=== PATIENT | male | born 1970 | race Caucasian/White ===

== ENCOUNTER 2017-03-23 13:39 | Emergency (ER) | payer SELFPAY ==
--- NOTE | 2017-03-23 15:16 | RAD ---
HISTORY: Left ankle pain, injury COMPARISONS: None VIEWS: 3, Frontal, lateral, and oblique views of the left ankle FINDINGS: BONE DENSITY: Normal. BONES: There is no displaced fracture. JOINTS: There is no arthropathy. ALIGNMENT: There is no dislocation. SOFT TISSUES: Unremarkable. OTHER FINDINGS: None. IMPRESSION: NO ACUTE OSSEOUS INJURY. IF SYMPTOMS PERSIST, RECOMMEND REPEAT IMAGING.
--- NOTE | 2017-03-23 15:28 | ED ---
Lower Extremity - HPI Summary HPI Summary: 46 male presents to ED with complaints of left ankle/foot pain after an injury that occurred 3 days ago. Patient states he fell off a ladder and landed on his feet. States he fell about 4 feet. Denies any other injuries or complaints. Did not hit his head. Denies known twisting of his ankle or foot. No knee or hip pain. Admits to swelling and bruising of left ankle/medial foot. Has been unable to bear weight. Has been taking ibuprofen with relief. Also has been using crutches. No other complaints. No other medications. No PMHx. - History of Current Complaint Chief Complaint: EDExtremityLower Stated Complaint: LT ANKLE INJURY Time Seen by Provider: 03/23/17 14:09 Hx Obtained From: Patient Mechanism Of Injury: Fall From Height Of: - 4 feet Onset of Pain: Immediate, Post Accident Onset/Duration: Still Present Severity Initially: Moderate Severity Currently: Mild Pain Intensity: 2 Pain Scale Used: 0-10 Numeric Timing: Constant Location: Is Discrete @ - left ankle and medial foot Character Of Pain: Sharp, Aching Associated Signs And Symptoms: Positive: Swelling, Bruising Aggravating Factor(s): Standing, Movement, Weight Bearing Alleviating Factor(s): Rest Able to Bear Weight: No - due to pain and injury Feet (Multiple View): 1 - swelling, bruising and pain - Allergies/Home Medications Allergies/Adverse Reactions: Allergies Allergy/AdvReac Type Severity Reaction Status Date / Time No Known Allergies Allergy Verified 03/23/17 13:42 PMH/Surg Hx/FS Hx/Imm Hx Endocrine/Hematology History: Denies: Hx Diabetes Cardiovascular History: Denies: Hx Hypertension Respiratory History: Denies: Hx Asthma - Surgical History Surgery Procedure, Year, and Place: n/a - Immunization History Immunizations Up to Date: Yes Infectious Disease History: No Infectious Disease History: Denies: Traveled Outside the [place] in Last 30 Days - Family History Known Family History: Positive: None - Social History Alcohol Use: Daily Alcohol Amount: 12 beers/day Substance Use Type: Reports: Marijuana Substance Use Comment - Amount & Last Used: rare Smoking Status (MU): Heavy Every Day Tobacco Smoker Review of Systems Constitutional: Negative Cardiovascular: Negative Respiratory: Negative Positive: Arthralgia, Myalgia, Decreased ROM, Edema - left ankle/foot Positive: Bruising - left ankle Neurological: Negative All Other Systems Reviewed And Are Negative: Yes Physical Exam Triage Information Reviewed: Yes Vital Signs On Initial Exam: Initial Vitals Temp Pulse Resp BP Pulse Ox 96.6 F 96 20 186/111 96 03/23/17 13:43 03/23/17 13:43 03/23/17 13:43 03/23/17 13:43 03/23/17 13:43 Vital Signs Reviewed: Yes Appearance: Positive: Well-Appearing, No Pain Distress, Well-Nourished Skin: Positive: Warm, Skin Color Reflects Adequate Perfusion, Dry. Negative: Cold, Soft, Mass @, Cold Injury Head/Face: Positive: Normal Head/Face Inspection Eyes: Positive: Conjunctiva Clear Neck: Positive: Supple, Nontender Respiratory/Lung Sounds: Positive: Clear to Auscultation, Breath Sounds Present. Negative: Rales, Rhonchi, Wheezes Cardiovascular: Positive: Normal, RRR, Pulses are Symmetrical in both Upper and Lower Extremities - 2+ pedal b/l. Negative: Murmur, Rub Musculoskeletal: Positive: Limited @ - left ankle due to pain, injury, Pain @ - left ankle with movement and palpation, Edema Left - ankle lateral left malleolous and around calcanus, Other - negative allred test. no tenderness of bones of lower leg or knee on palpation and no sign of deformity or trauma. no crepitus or step off.. Negative: Interruption @, Abnormal @ - no obvious deformity other than swelling, Lamont Sign Left, Lamont Sign Right Neurological: Positive: Normal, Sensory/Motor Intact, Alert, Oriented to Person Place, Time, CN Intact II-III, Reflexes Intact, NV Bundle Intact Distally, Unable to Assess Gait - due to pain and injury Diagnostics - Vital Signs Vital Signs Temp Pulse Resp BP Pulse Ox 03/23/17 13:43 96.6 F 96 20 186/111 96 - Laboratory Lab Statement: Any lab studies that have been ordered have been reviewed, and results considered in the medical decision making process. - Radiology left ankle Xray Interpretation: No Acute Changes - NO ACUTE OSSEOUS INJURY. IF SYMPTOMS PERSIST, RECOMMEND REPEAT IMAGING. 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 was comfortable throughout stay. normal vitals, BP improved at recheck. xray obtained left ankle /calcanus and negative. crutches were properly sized. given ankle brace. continue RICE and ibuprofen. Follow up with ortho and pcp. aware of worsening signs and symptoms to watch out for. no concern for other etiology at this time. - Diagnoses Differential Diagnosis/HQI/PQRI: Positive: Contusion, Dislocation, Fracture ( Closed), Sprain, Strain Provider Diagnoses: Ankle sprain Discharge - Discharge Plan Condition: Stable Disposition: HOME Patient Education Materials: Ankle Sprain (ED) Referrals: Jerry Molina MD [Medical Doctor] - [facility] [place] [facility] [Outside] Additional Instructions: Rest, ice and elevate. Refrain from use and bearing weight. Wear brace and crutches for ~2 weeks while symptoms persist. Continue ibuprofen/tylenol for pain and inflammation. Follow up with ortho to ensure improvement or if symptoms worsen. Any new or worsening symptoms please seek medical attention promptly, as discussed. Follow up with pcp.
[2017-03-23 16:47] VITALS: BP 137/88
--- NOTE | 2017-03-23 16:55 | RAD ---
INDICATION: Left foot injury. TECHNIQUE: 3 views of the left foot were obtained. FINDINGS: The bones are in normal alignment. No fracture is seen. Joint spaces appear maintained. IMPRESSION: NO EVIDENCE FOR FRACTURE, IF THE PATIENT'S SYMPTOMS PERSIST RECOMMEND FOLLOW-UP IMAGING.
== END 2017-03-23 16:46 | disposition home or self-care (01) ==
LOC: ED 13:39
DX: S93.402A Sprain of unspecified ligament of left ankle, initial encounter (principal); M25.572 Pain in left ankle and joints of left foot; W11.XXXA Fall on and from ladder, initial encounter; Y93.9 Activity, unspecified; Y92.9 Unspecified place or not applicable; R22.9 Localized swelling, mass and lump, unspecified
CPT/HCPCS: 99282